=== PATIENT | male | born 1970 | race Caucasian/White ===

== ENCOUNTER 2022-06-29 12:03 | Emergency (ER) | payer SELFPAY ==
--- NOTE | ~2022-06-29 | XR_ITS ---
EXAMINATION: XR FINGER, LEFT CLINICAL INFORMATION: Left thumb laceration. Rule out foreign body or fracture. COMPARISON: None available. TECHNIQUE: Three views of the left hand first digit. FINDINGS: First digit soft tissue swelling. A few tiny radiopaque densities are seen at the dorsal aspect of the first digit adjacent to the interphalangeal joint. The largest measures 0.2 cm. No fracture. Joint spaces are maintained. XR/XR finger LT min 2V IMPRESSION: Soft tissue swelling of the first digit. A few tiny radiopaque densities are seen at the dorsal aspect of the first digit adjacent to the interphalangeal joint.
[2022-06-29 12:14] VITALS: BP 142/79; PULSE 71; RESP 17; TEMP 36.6; O2SAT 97; BMI 47.5
--- NOTE | 2022-06-29 12:21 | ED_ITS ---
HPI - Wound/Laceration General Chief Complaint: Wound/Laceration Stated Complaint: l thumb laceration Time Seen by Provider: 06/29/22 12:20 Source: patient and RN notes reviewed Mode of arrival: ambulatory Limitations: no limitations History of Present Illness HPI narrative: This is a 52-year-old male who presents to the emergency department today with complaints of left thumb laceration which occurred at 9:30 a.m. today. Patient reports that he was using a metal round saw and accidentally lacerated his left thumb. He states that his friend place 2 butterfly stitches on the wound. Patient reports that he does not have any pain to his left thumb. His tetanus is up-to-date. Patient denies any numbness or tingling. No other complaints or concerns at this time. Onset (ago): hour(s) Location: other (left thumb laceration) Place: home Patient tetanus UTD: Yes Context: accidental Associated symptoms: none Treatments prior to arrival: bandage Related Data Previous Rx's Medication Instructions Recorded cephalexin 500 mg capsule 500 mg PO TID 5 days #15 caps 06/29/22 Allergies Allergy/AdvReac Type Severity Reaction Status Date / Time No Known Allergies Allergy Verified 06/29/22 12:14 Review of Systems Review of Systems: Yes all other systems are reviewed and are negative PMFSH Social History Social History Advance Directives: No Advance Directives Information Provided: No Physical Exam Vital Signs: Vital Signs: Last Vital Signs Temp 98 F 06/29/22 12:14 Pulse 71 06/29/22 12:14 Resp 17 06/29/22 12:14 BP 142/79 H 06/29/22 12:14 Pulse Ox 97 06/29/22 12:14 O2 Del Method Room Air 06/29/22 12:14 BMI result Body Mass Index 47.5 General: Awake, alert, and oriented X3. No acute distress. HEENT: Normal inspection CVS: Normal heart rate and rhythm. Pulses normal. Respiratory: No respiratory distress Skin: Left thumb, dorsal aspect overlying the DIP extending just to the base of the nail bed, there is a 4cm partial thickness, curved laceration that with two butterfly sutures placed. No nail involvement. Flexor tendon is visualized and is fully intact with no lacerations to the tendon. No active bleeding. Extremities: Left thumb with full range of motion at the DIP. Able to flex and extend at the DIP, thumb opposition intact. Neuro: Oriented X 3. No motor deficit. No sensory deficit. Medications Administered Discontinued Medications Generic Name Dose Route Start Last Admin Trade Name Rika PRN Reason Stop Dose Admin Bacitracin 1 appl 06/29/22 13:44 06/29/22 13:48 Bacitracin Oint 0.9 Gm Packet TOPICAL 06/29/22 13:45 1 appl ONCE ONE Administration Protocol Lidocaine HCl 4 ml 06/29/22 12:56 06/29/22 13:00 Lidocaine Hcl 1 % Mpf 2 Ml Vial INFILTRATI 06/29/22 12:57 4 ml ONCE ONE Administration Medical Decision Making Medical Decision Making MDM Narrative: 52 y/o M presents for left thumb laceration. X-ray of left thumb ordered. Xray reviewed as Soft tissue swelling of the first digit. A few tiny radiopaque densities are seen at the dorsal aspect of the first digit adjacent to the interphalangeal joint. Wound extensively cleaned with betadine and saline. No foreign bodies seen. 5 sutures placed in wound, see procedure note. Discharged on abx for wound infection prophylaxis. Flexor tendon visualized, but is fully intact. Educated patient on good wound care, placed in thumb splint for better wound healing. Dressed with bacitracin. Advised to have sutures removed in 10-14 days. Range of motion is fully in tact, but given [facility] for follow up if needed. Discussed this with patient, patient understands and agrees with plan. ? Differential Diagnosis left thumb laceration, abrasion, contusion, fracture, foreign body. Radiology Impression Discussion of test interpretation with radiology: I have reviewed the radiologist's reading. Radiologist Impression: EXAMINATION: XR FINGER, LEFT CLINICAL INFORMATION: Left thumb laceration. Rule out foreign body or fracture.? COMPARISON: None available.? TECHNIQUE: Three views of the left hand first digit. FINDINGS: First digit soft tissue swelling. A few tiny radiopaque densities are seen at the dorsal aspect of the first digit adjacent to the interphalangeal joint. The largest measures 0.2 cm. No fracture. Joint spaces are maintained.? XR/XR finger LT min 2V IMPRESSION: Soft tissue swelling of the first digit. A few tiny radiopaque densities are seen at the dorsal aspect of the first digit adjacent to the interphalangeal joint. ? Dictated By: Polo Bauer MD Procedures Procedure Narrative Procedure Narrative: Patient tolerated procedure well without any complications or concerns. See below. Laceration Laceration 1: Site: hand Side (If applicable): left Size (cm): 4 Description: other (curved) Depth: simple, single layer Local Anesthetic: lidocaine 1% Amount of anesthesia used (mL): 6 Pre-repair: wound explored, irrigated extensively and deep structures intact Skin layer closed with: nylon Size (cm): 4-0 Number of sutures: 5 Technique: simple, interrupted Size: 4-0 Discharge Plan Discharge Clinical Impression: Laceration of left thumb Patient Disposition: Home, Self-Care Instructions: Finger Laceration (ED) Additional Instructions: Please have sutures removed in 10-14 days. Take antibiotics as directed. Keep wound clean and dry. Watch for any signs of infection including any fevers, chills, increased redness, warmth, swelling, decreased range of motion. If you develop any difficulties with range of motion of your thumb, please follow up with orthopedics. If any new or worsening symptoms occur, please return for re-evaluation. Prescriptions: New cephalexin 500 mg capsule 500 mg PO TID 5 Days Qty: 15 0RF Referrals: [facility] [place] [facility] [Provider Group] Interventions: ED Discharge Assessment Last Done: 06/29/22 13:58 Discharge Date/Time: 06/29/22 13:59
[2022-06-29] MEDS: Lidocaine HCl 1 % MPF 2 ML VIAL 4 ML INFILTRATI (13:00)
[2022-06-29] MEDS: Bacitracin Oint 0.9 GM PACKET 1 APPL TOPICAL (13:48)
== END 2022-06-29 13:59 | disposition home or self-care (01) ==
PROVIDERS: Emergency Provider Emergency Medicine
DX: S61.012A Laceration without foreign body of left thumb without damage to nail, initial encounter (principal); W26.9XXA Contact with unspecified sharp object(s), initial encounter; Y93.9 Activity, unspecified; Y92.9 Unspecified place or not applicable; Y99.9 Unspecified external cause status
CPT/HCPCS: 12042; 73140; 99283; 99284